=== PATIENT | male | born 2000 | race Caucasian/White ===

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

== ENCOUNTER 2019-02-21 16:01 | Emergency (ER) | payer BC, OTHER ==
[2019-02-21] MEDS ORDERED: IBUPROFEN 400 MG TABLET (FP) PO ONE ×2 (16:10→16:13)
[2019-02-21 16:17] VITALS: BP 118/80; PULSE 54; TEMP 98.1; BMI 24.3
--- NOTE | 2019-02-21 18:23 | PDOC ---
Documentation entered by Fannie Marinelli SCRIBE, acting as scribe for Kacey Clemons MD. Kacey Clemons MD: This documentation has been prepared by the scribe, Fannie Marinelli SCRIBE, under my direction and personally reviewed by me in its entirety. I confirm that the documentation accurately reflects all work, treatment, procedures, and medical decision making performed by me. History of Present Illness - General Chief Complaint: Injury Stated Complaint: RT HAND INJURY Time Seen by Provider: 02/21/19 16:09 History Source: Patient Exam Limitations: No Limitations - History of Present Illness Initial Comments: 02/21/19 16:13 The patient is a 18-year-old male, with a past medical history of asthma, who presents to the ED with pain to the lateral portion of his RT hand. The patient denies other injuries or symptoms. Past History - Past Medical History Allergies/Adverse Reactions: Allergies Allergy/AdvReac Type Severity Reaction Status Date / Time No Known Allergies Allergy Unverified 06/19/14 15:49 Home Medications: Ambulatory Orders NK [No Known Home Medication] 02/21/19 Asthma: Yes COPD: No - Surgical History Appendectomy: Yes - Immunization History Immunization Up to Date: Yes - Suicide/Smoking/Psychosocial Hx Smoking History: Never smoked Have you smoked in the past 12 months: No Information on smoking cessation initiated: No Hx Alcohol Use: No Drug/Substance Use Hx: No Substance Use Type: None Review of Systems - Review of Systems Able to Perform ROS?: Yes Comments:: 02/21/19 16:14 GENERAL/CONSTITUTIONAL: No fever or chills. No weakness. HEAD, EYES, EARS, NOSE AND THROAT: No change in vision. No ear pain or discharge. No sore throat. CARDIOVASCULAR: No chest pain or shortness of breath. RESPIRATORY: No cough, wheezing, or hemoptysis. GASTROINTESTINAL: No nausea, vomiting, diarrhea or constipation. GENITOURINARY: No dysuria, frequency, or change in urination. MUSCULOSKELETAL: (+)RT hand pain. No joint swelling or pain. No neck or back pain. SKIN: No rash NEUROLOGIC: No headache, vertigo, loss of consciousness, or change in strength/ sensation. ENDOCRINE: No increased thirst. No abnormal weight change. HEMATOLOGIC/LYMPHATIC: No anemia, easy bleeding, or history of blood clots. ALLERGIC/IMMUNOLOGIC: No hives or skin allergy. *Physical Exam - Vital Signs Last Vital Signs Temp Pulse Resp BP Pulse Ox 98.1 F 54 L 20 118/80 98 02/21/19 16:02 02/21/19 16:02 02/21/19 16:02 02/21/19 16:02 02/21/19 16:02 - Physical Exam Comments: 02/21/19 16:15 GENERAL: Awake, alert, and fully oriented, in no acute distress RT Hand: No tenderness or deformities. FROM at all dip, pip, and mcp joints. (+) He has a 3x1 cm ecchymosis over the ulnar side of the dorsum of his hand. Neurovascularly intact. FROM of all his fingers and his wrist. intact radial pulse, cap refill and sensation 02/21/19 16:41 ED Treatment Course - RADIOLOGY Radiology Studies Ordered: Category Date Time Status HAND- RIGHT [RAD] Stat Radiology 02/21/19 16:09 Taken - Medications Given in the ED: ED Medications Discontinued Medications Generic Name Dose Route Start Last Admin Trade Name Freq PRN Reason Stop Dose Admin Ibuprofen 800 mg 02/21/19 16:10 02/21/19 16:25 Motrin - PO 02/21/19 16:11 800 mg ONCE ONE Administration Medical Decision Making - Medical Decision Making 02/21/19 16:45 Dr. Emanuel was paged and notified via phone service. *DC/Admit/Observation/Transfer Diagnosis at time of Disposition: Fracture, metacarpal Qualifiers: Encounter type: initial encounter Metacarpal bone: fifth Fracture type: closed Metacarpal location: base Fracture alignment: nondisplaced Laterality: right Qualified Code(s): S62.346A - Nondisplaced fracture of base of fifth metacarpal bone, right hand, initial encounter for closed fracture - Discharge Dispostion Disposition: HOME Condition at time of disposition: Good Decision to Admit order: No - Referrals - Patient Instructions Printed Discharge Instructions: DI for a Hand Fracture Additional Instructions: you came to the ED for hand pain. you have an R 5th metacarpal fracture. you should wear the splint until you follow up with Dr. Smith or Dr. Emanuel, except to shower. return to the ED for severe hand pain or swelling, cold numb blue swollen hand or arm, other new or worsening symptoms. Call Dr. Smith for follow up. YOU MUST follow up with an orthopedist or a hand surgeon next week. - Post Discharge Activity Forms/Work/School Notes: Back to School
== END 2019-02-21 18:43 | disposition home or self-care (01) ==
LOC: FER 16:01
PROC: 2W3CX1Z Immobilization of Right Lower Arm using Splint (ICD-10-PCS; principal; 2019-02-21)
DX: S62.346A Nondisplaced fracture of base of fifth metacarpal bone, right hand, initial encounter for closed fracture (principal); X58.XXXA Exposure to other specified factors, initial encounter; Y93.89 Activity, other specified; Y92.89 Other specified places as the place of occurrence of the external cause; J45.909 Unspecified asthma, uncomplicated
CPT/HCPCS: 73130-TC-RT-FY; 99281-25

== ENCOUNTER 2022-02-28 07:57 | Emergency (ER) | payer BC, OTHER ==
[2022-02-28 08:09] VITALS: BP 127/63; PULSE 67; RESP 20; TEMP 98.3; BMI 26.6
[2022-02-28] MEDS ORDERED: METOCLOPRAMIDE HCL INJECTION 10 MG/2 ML VIAL IVPB ONE (08:10)
[2022-02-28] MEDS ORDERED: SODIUM CHLORIDE 0.9% 500 ML INFUS.BAG IV ONE (08:10)
[2022-02-28] MEDS ORDERED: ACETAMINOPHEN 1000 MG/100 ML BAG IVPB ONE (08:26)
[2022-02-28] MEDS ORDERED: METOCLOPRAMIDE HCL INJECTION 10 MG/2 ML VIAL ONE (08:26)
[2022-02-28 09:07] LABS: BILIRUBIN,TOTAL 0.8 mg/dl (0.2-1); CALCIUM 9.7 mg/dl (8.5-10); TOT PROT 6.5 g/dl (6.4-8.2)
[2022-02-28] MEDS ORDERED: ACETAMINOPHEN INJECTION 100 ML IVPB ONE (09:30)
[2022-02-28 10:04] LABS: HEMATOCRIT 46.3 % (35.4-49); MCH 32.5 pg (25.7-33.7); MCHC 36.2 g/dl (32.0-35.9); MEAN CELL VOLUME 89.9 fl (80-96); MEAN PLT VOLUME 8.5 fl (7.5-11.1); PLATELET COUNT 204.1 10^3/uL (134-434); RBC 5.15 10^6/uL (4.00-5.60); RDW 14.1 % (11.9-15.9)
[2022-02-28 10:18] LABS: HEMOGLOBIN 16.8 G/dL (11.7-16.9)
[2022-02-28 10:21] LABS: PLATELET ESTIMATE ADEQUATE
== END 2022-02-28 10:54 | disposition home or self-care (01) ==
LOC: FER 07:57
PROC: 3E033GC Introduction of Other Therapeutic Substance into Peripheral Vein, Percutaneous Approach (ICD-10-PCS; principal; 2022-02-28)
DX: R51.9 Headache, unspecified (principal)
CPT/HCPCS: 0241U-QW; 36415; 80053; 85027; 87651; 99284-25

== ENCOUNTER 2024-11-16 23:51 | Emergency (ER) | payer BC, OTHER ==
[2024-11-16] MEDS ORDERED: TETRACAINE 0.5% OPHTH SOLN 2 ML BOTTLE ONE (23:58)
[2024-11-16] MEDS ORDERED: FLUORESCEIN NA 1 EA STRIP ONE ×2 (23:58→23:59)
[2024-11-17 00:08] VITALS: BP 131/86; PULSE 82; RESP 16; TEMP 97.7; BMI 28.0
[2024-11-17] MEDS ORDERED: FLUORESCEIN NA 1 EA STRIP ONE (00:08)
[2024-11-17] MEDS: FLUORESCEIN NA 1 EA STRIP OD ONE (00:10)
[2024-11-17] MEDS ORDERED: ERYTHROMYCIN 0.5% OPHTHALMIC OINTMENT 3.5 GM TUBE ONE (00:10)
[2024-11-17] MEDS: TETRACAINE 0.5% HCL 0.6ML DROPPER.BOTTLE OD ONE (00:11)
[2024-11-17] MEDS ORDERED: ERYTHROMYCIN 0.5% OPHTHALMIC OINTMENT 3.5 GM TUBE OD SCH (10:00)
== END 2024-11-17 00:27 | disposition home or self-care (01) ==
LOC: FER 23:51
DX: T15.92XA Foreign body on external eye, part unspecified, left eye, initial encounter (principal); W22.8XXA Striking against or struck by other objects, initial encounter; Y99.0 Civilian activity done for income or pay
CPT/HCPCS: 99283-25